=== PATIENT | male | born 1965 | race Caucasian/White ===

== ENCOUNTER → 2016-07-18 | Outpatient (CLI) | payer MEDICAID ==
[~2016-07-18] MED LIST: FLEXERIL PO; IBUPROFEN PO; KEFLEX500 MG PO; NEURONTIN600 MG PO
--- NOTE | ~2016-07-18 | CR127 ---
[facility] A Service of [facility] RADIOLOGY TEXT RESULTS PATIENT: BALDO RUTLEDGE LOCATION: [facility] : 61 UNIT #: [id number] AGE: [address]: GLADYS STEPHENSON MD SEX: M ORDER DR: [id number] [place] [id number] O MR#: [id number] Acc #: [id number] NAME: BALDO RUTLEDGE : 1965 SEX: M STUDY DATE/TIME: 07/18/2016 12:21 UNIT: SRAD ROOM: STUDY DESCRIPTION: CR Foot Complete Min 3 View Rt Attending Physician: Cal Stephenson M.D. Ordering Physician: Cal Stephenson M.D. MEDICAL IMAGING REPORT This report is preliminary unless electronic signature is present. EXAM Right foot, 07/18/2016. INDICATION 51-year-old male with chronic right foot pain. Dropped something on the foot. Symptoms began a year ago, heard a pop 2 days ago. Pain in the first metacarpal region. TECHNIQUE 3 views right foot COMPARISON 05/05/2010 FINDINGS The examination is negative. There is no acute fracture. No retained opaque foreign body. Soft tissues unremarkable. Minimal atherosclerotic change. IMPRESSION Negative Dictated by... Octavio Paetl M.D. THIS IS AN ELECTRONICALLY VERIFIED REPORT Octavio Patel M.D. at 07/19/2016 5:03 PM SUZANNE/adri TD: 07/19/2016 11:37 [facility] A Service of [facility] RADIOLOGY TEXT RESULTS PATIENT: BALDO RUTLEDGE LOCATION: [facility] : 61 UNIT #: [id number] AGE: [address]: GLADYS STEPHENSON MD SEX: M ORDER DR: FEDERICO #: [id number] MEDICAL IMAGING REPORT Page 1 of 1
== END | disposition home or self-care (01) ==
LOC: SRAD 12:07
DX: M79.671 Pain in right foot (principal)
CPT/HCPCS: 73630